=== PATIENT | female | born 1980 | race Caucasian/White ===

== ENCOUNTER 2021-03-30 21:15 | Emergency (ER) | payer MEDICAID ==
--- NOTE | 2021-03-30 22:09 | EDM.PDOC ---
ED HPI GENERAL MEDICAL PROBLEM - General Stated Complaint: 1ST COVID SHOT;PAIN IN CHEST AREA;FEELING FUNNY Time Seen by Provider: 03/30/21 22:00 Source of Information: Reports: Patient, Significant Other History Limitations: Reports: No Limitations - History of Present Illness INITIAL COMMENTS - FREE TEXT/NARRATIVE: Patient presents to the ed for chest pain , headaches, bocy aches, feeling unwell that started about 30 minutes after receiving her first covid 19 vaccination at 16:00 today. 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 [facility] echo cardiogram was normal, CT chest was without fibrosis, was found to have tachycardia and hypoxia at night and sleep study is ordered. SHe is scheduled to start pulmonary rehab due to shortness of breath, fatigue, decreased exercise tolerance and hypoxia. SHe was prescribed oxygen to wear at night. Today patient was in her usual post covid state and had her vaccination in the right arm. Developed some bilateral neck pain, left chest pain that is intermittant, headache and general feeling unwell. Became concerned for possible allergic reaction or side effects of the vaccine and presented for evaluation. Onset: Today Onset Time: 16:30 Duration: Intermittent Location: Reports: Neck, Chest Past Medical History Respiratory History: Reports: Other (See Below) (covid 19) Social & Family History - Tobacco Use Tobacco Use Status *Q: Never Tobacco User - Alcohol Use Alcohol Use History: Yes Alcohol Use in Last Twelve Months: Yes Alcohol Use Frequency: Socially - Recreational Drug Use Recreational Drug Use: No Drug Use in Last 12 Months: No - Sexual History Sexual History: Reports: Sexually Active, Single Partner (vasectomy in partner) ED ROS GENERAL - Review of Systems Review Of Systems: See Below Constitutional: Reports: Malaise, Weakness, Fatigue. Denies: Night Sweats, Diaphoresis HEENT: Denies: Glasses, Nosebleed, Rhinitis, Sinus Problem, Throat Pain Respiratory: Reports: No Symptoms, Pleuritic Chest Pain Cardiovascular: Reports: Chest Pain. Denies: Claudication, Dyspnea on Exertion Endocrine: Reports: Fatigue GI/Abdominal: Reports: No Symptoms. Denies: Bloody Stool, Diarrhea, Nausea, Vomiting Musculoskeletal: Reports: Neck Pain Skin: Reports: No Symptoms Neurological: Reports: Headache. Denies: Pre-Existing Deficit, Tremors, Trouble Speaking Psychiatric: Reports: No Symptoms Hematologic/Lymphatic: Reports: No Symptoms. Denies: Anemia ED EXAM, GENERAL - Physical Exam Exam: See Below Exam Limited By: No Limitations General Appearance: Alert, WD/WN, No Apparent Distress Eye Exam: Bilateral Eye: EOMI, Normal Inspection, PERRL Ear Exam: Bilateral Ear: TM normal Nose: Normal Inspection, Normal Mucosa, No Blood Throat/Mouth: Normal Inspection, Normal Lips, Normal Teeth, Normal Voice Head: Atraumatic, Normocephalic Neck: Normal Inspection, Supple, Non-Tender, Full Range of Motion. No: Lymphadenopathy (L), Lymphadenopathy (R) Respiratory/Chest: No Respiratory Distress, Lungs Clear, Normal Breath Sounds, No Accessory Muscle Use, Chest Non-Tender Cardiovascular: Normal Peripheral Pulses, Regular Rate, Rhythm, No Murmur GI/Abdominal: Normal Bowel Sounds, Soft, Non-Tender, No Organomegaly, No Abnormal Bruit Extremities: Normal Inspection, Normal Range of Motion, Non-Tender, No Pedal Franco ma, Normal Capillary Refill Neurological: Alert, Oriented Psychiatric: Normal Affect Skin Exam: Warm #1 Interpretation EKG Date: 03/30/21 Time: 22:02 Rhythm: NSR Rate (Beats/Min): 73 Mckinney: Normal P-Wave: Present QRS: Normal ST-T: Normal QT: Normal Course - Orders/Labs/Meds Orders: Active Orders 24 hr Category Date Time Status EKG Documentation Completion [RC] STAT Care 03/30/21 21:59 Active Chest 2V [CR] Stat Exams 03/30/21 22:40 Taken Labs: Laboratory Tests 03/30/21 03/30/21 03/30/21 Range/Units 22:15 22:15 22:15 WBC 10.4 H (4.0-10.0) x10^3/uL RBC 3.77 L (4.00-5.50) x10^6/uL Hgb 11.7 L (12.0-16.0) g/dL Hct 34.7 (33.0-47.0) % MCV 92.0 (78.0-93.0) fL MCH 31.0 (26.0-32.0) pg MCHC 33.7 (32.0-36.0) g/dL RDW Coeff of Cam 12.3 (10.0-15.0) % Plt Count 262 (130-400) x10^3/uL Neut % (Auto) 66.0 (50.0-80.0) % Lymph % (Auto) 23.1 L (25.0-50.0) % Arroyo % (Auto) 8.4 (2.0-11.0) % Eos % (Auto) 2.1 (0.0-4.0) % Baso % (Auto) 0.4 (0.2-1.2) % ESR 9 (0-20) mm/hr D-Dimer, Quantitative 0.32 (<=0.58) mg/LFEU Sodium 141 (136-145) mmol/L Potassium 3.4 L (3.5-5.1) mmol/L Chloride 104 (98-107) mmol/L Carbon Dioxide 26 (21-32) mmol/L Anion Gap 14.4 (5-15) mmol/L BUN 12 (7-18) mg/dL Creatinine 0.9 (0.55-1.02) mg/dL Est Cr Clr Drug Dosing TNP Estimated GFR (MDRD) > 60 Glucose 86 (70-99) mg/dL Calcium 8.5 (8.5-10.1) mg/dL Corrected Calcium 8.8 (8.5-10.1) mg/dL Total Bilirubin 0.6 (0.2-1.0) mg/dL AST 15 (15-37) U/L ALT 17 (14-59) U/L Alkaline Phosphatase 60 (46-116) U/L Troponin I High Sens < 4 (<=51) ng/L C-Reactive Protein < 0.2 (<=0.9) mg/dL Total Protein 7.3 (6.4-8.2) g/dL Albumin 3.6 (3.4-5.0) g/dL Globulin 3.7 Albumin/Globulin Ratio 0.97 - Radiology Interpretation Free Text/Narrative:: chest x-ray without acute, preliminary report - Re-Assessments/Exams Free Text/Narrative Re-Assessment/Exam: 03/30/21 22:49 Patient is looking for reassurance. will check labs, ekg and chest x-ray. more than likely just symptoms and side effects of the covid vaccination. declines wanting pain medication. 03/30/21 23:21 offere reassurance, probably side effects from long hauler syndrome and vaccine Departure - Departure Time of Disposition: 23:22 Disposition: Home, Self-Care 01 Clinical Impression: Post-COVID chronic fatigue, Myalgia after COVID-19 vaccination - Discharge Information *PRESCRIPTION DRUG MONITORING PROGRAM REVIEWED*: Not Applicable *COPY OF PRESCRIPTION DRUG MONITORING REPORT IN PATIENT [place]: Not Applicable Referrals: Amilcar Kim, [employer] [Primary Care Provider] - Additional Instructions: Use tylenol or motrin for body aches. Testing is negative for acute problems and you are probably experiencing side effects from the vaccine. Follow up with PCP - My Orders Last 24 Hours: My Active Orders 03/30/21 21:59 EKG Documentation Completion [RC] STAT 03/30/21 22:40 Chest 2V [CR] Stat - Assessment/Plan Last 24 Hours: My Active Orders 03/30/21 21:59 EKG Documentation Completion [RC] STAT 03/30/21 22:40 Chest 2V [CR] Stat
[2021-03-30 22:39] LABS: ANION GAP 14.4 mmol/L (5-15); CHLORIDE,CL 104 mmol/L (98-107); SODIUM,NA 141 mmol/L (136-145)
--- NOTE | 2021-03-31 08:46 | CR ---
[id number] RAD/RAD Chest PA And Lateral EXAM: RAD Chest PA And Lateral INDICATION: CHEST PAIN,POST COVID VACCINATION. COMPARISON: None. DISCUSSION/IMPRESSION: Cardiomediastinal silhouette is normal in size and contour. 12 mm nodular opacity in the right lower lung. This could represent lung nodule, nipple artifact, or summation artifact from overlapping structures of the chest wall. Consider repeat radiograph examination with nipple markers versus noncontrast chest CT for further evaluation as clinically warranted. Lungs are otherwise clear. No pleural effusion or pneumothorax. Man Guevara MD 03/31/21 [id number] Thank you for allowing us to participate in the care of your patient.
== END 2021-03-30 23:29 | disposition home or self-care (01) ==
LOC: VM.ED 21:15
DX: M79.10 Myalgia, unspecified site (principal); T50.B95A Adverse effect of other viral vaccines, initial encounter; R53.83 Other fatigue
CPT/HCPCS: 36415; 71046; 80053; 84484; 85025; 85379; 85652; 86140; 93005; 93010; 99284; 99285-25